=== PATIENT | female | born 1995 | race Caucasian/White ===

== ENCOUNTER 2017-03-25 14:18 | Emergency (ER) | payer MEDICAID ==
[2017-03-25 14:41] VITALS: BP 150/65
--- NOTE | 2017-03-25 15:24 | EDM.PDOC ---
ED HPI GENERAL MEDICAL PROBLEM - General Chief Complaint: General Stated Complaint: SORE THROAT Time Seen by Provider: 03/25/17 14:45 Source of Information: Reports: Patient, Family (mother present in room) History Limitations: Reports: No limitations - History of Present Illness INITIAL COMMENTS - FREE TEXT/NARRATIVE: 21 yr old female who developed a 'really bad' sore throat last evening. Has been using motrin with some relief. Will intermittently cough and feels she is bringing up some mucus which had a pink tint. Hx of pneumonia in past year. No shortness of breath, no cough with exception of throat irritation. Mild nasal congestion. Unsure of sick contacts. 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: Reports: Other (see below) (ibuprofen) throat Pain Score (Numeric/FACES): 8 - Related Data Allergies Allergy/AdvReac Type Severity Reaction Status Date / Time Penicillins Allergy Nausea Verified 03/25/17 14:42 Home Meds: Home Meds Citalopram [Citalopram Hbr] 40 mg PO DAILY 03/25/17 [History] LORazepam [Ativan] 0.5 mg PO ASDIRECTED PRN 03/25/17 [History] Past Medical History Psychiatric History: Reports: Anxiety, Depression - Past Surgical History HEENT Surgical History: Reports: Adenoidectomy, Myringotomy w tube(s) Social & Family History - Tobacco Use Smoking Status *Q: Current Every Day Smoker Years of Tobacco use: 4 Packs/Tins Daily: 1 - Recreational Drug Use Recreational Drug Use: No - Living Situation & Occupation 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 Now calm) Hematologic/Lymphatic: Reports: no symptoms Immunologic: Reports: no symptoms ED EXAM, GENERAL - Physical Exam Exam: See Below Exam Limited By: No limitations General Appearance: alert, WD/WN, no apparent distress (was noted to be anxious at time of triage. Calm at time of visit.) Eye Exam: bilateral eye: normal inspection, PERRL Ears: normal external exam, normal canal, hearing grossly normal, normal TMs Nose: normal inspection, normal mucosa Throat/Mouth: Normal lips, Normal voice, No airway compromise, Other (tonsil cratering noted with exudates and redness.) Head: atraumatic, normocephalic Neck: normal inspection, supple, non-tender, full range of motion Respiratory/Chest: no respiratory distress, lungs clear, normal breath sounds Cardiovascular: regular rate, rhythm Extremities: normal inspection, normal range of motion Neurological: alert, oriented, CN II-XII intact, normal cognition, normal gait Psychiatric: normal affect, normal mood Skin Exam: Warm, Dry, Normal color, No rash Course - Vital Signs Last Recorded V/S: Last Vital Signs Temp 37.9 C 03/25/17 14:39 Pulse 93 03/25/17 14:39 Resp 17 03/25/17 14:39 BP 150/65 H 03/25/17 14:39 Pulse Ox 93 L 03/25/17 14:39 Departure - Departure Time of Disposition: 15:29 Disposition: Home, Self-Care 01 Condition: good Clinical Impression: Strep throat Pharyngitis Qualifiers: Pharyngitis/tonsillitis etiology: streptococcus Qualified Code(s): J02.0 - Streptococcal pharyngitis Instructions: Strep Throat Referrals: PCP,None [Primary Care Provider] - Forms: ED Department Discharge Additional Instructions: 1. Take Zithromax 500mg (2-250mg tablets) by mouth daily for 5 days. Eat before taking your antibiotics. Rx sent to [facility]. 2. Replace or sanitize your toothbrush by boiling or placing in biscuitware brusher after 24 hours antibiotics. 3. Continue to use Tylenol or ibuprofen as needed for fever and body aches. 4. A work note was provided for 03/26/17. You may return to work after 24 hours of antibiotics. - Problem List & Annotations (1) Strep throat SNOMED Code(s): 41423052, 814160563 Code(s): J02.0 - STREPTOCOCCAL PHARYNGITIS Status: Acute Current Visit: Yes - Problem List Review Problem List Initiated/Reviewed/Updated: Yes
== END 2017-03-25 15:39 | disposition home or self-care (01) ==
LOC: JP.ED 14:18
DX: J02.0 Streptococcal pharyngitis (principal); F32.9 Major depressive disorder, single episode, unspecified; F41.9 Anxiety disorder, unspecified; F17.210 Nicotine dependence, cigarettes, uncomplicated; Z96.22 Myringotomy tube(s) status; Z98.890 Other specified postprocedural states; Z79.899 Other long term (current) drug therapy; Z88.0 Allergy status to penicillin
CPT/HCPCS: 87430; 99283